=== PATIENT | female | born 1955 | race Caucasian/White ===

== ENCOUNTER 2017-11-03 15:17 | Day surgery (SDC) | payer MEDICARE, MEDICAID ==
[2017-11-03] MEDS ORDERED: NALOXONE HCL INJ/PF 0.4 MG/1 ML SDV ONE (15:29)
[2017-11-03] MEDS ORDERED: EPINEPHRINE INJ 1 MG/10 ML DISP.SYRIN ONE (15:30)
[2017-11-03] MEDS ORDERED: FLUMAZENIL INJ 0.5 MG/5 ML VIAL ONE (15:30)
[2017-11-03] MEDS ORDERED: GLUCAGON,HUMAN RECOMB 1 MG INJ ONE (15:30)
[2017-11-03] MEDS: MIDAZOLAM 2 MG/2 ML INJ ONE ×3 (17:24→17:40)
[2017-11-03] MEDS: FENTANYL CITRATE INJ/PF 100 MCG/2 ML AMPUL ONE ×2 (17:27→17:37)
--- NOTE | 2017-11-03 18:06 | Operative Report ---
Operative Report DATE OF SURGERY: 11/03/17 Operative Report: Pre-op diagnosis: Abnormal weight loss Post-op diagnosis: 1. Unable to perform EGD 2. Ascending colon polyps Surgery: Attempted upper endoscopy and Colonoscopy with polypectomy Medications: Versed 2mg, Fentanyl 75mcg IV push Tissue removed: Colon polyps Procedure: After informed consent obtained from patient's family, conscious sedation was achieved. Attempt was then made to pass the endoscope into the esophagus. I could not get through the upper esophageal sphincter as patient could not swallow and was agitated. A digital rectal examination was performed and this was unremarkable. The colonoscope was inserted into the rectum and advanced to the cecum. The appendiceal orifice and the terminal ileum were both identified. The mucosa was examined into details as the colonoscope was slowly pulled out of the patient. The endoscope was retroflexed in the rectum. Patient tolerated the procedure well. Findings Esophagus: Not intubated Cecum: Normal Ascending colon: 5 mm and 8 mm polyps removed from the proximal ascending colon Transverse colon: Normal. View of the left and right colon was slightly limited Descending colon: Normal Sigmoid colon: Normal Rectum: Normal except for internal hemorrhoids Plan: Await pathology OPERATION: .
[2017-11-03 18:53] VITALS: BP 113/73
== END 2017-11-03 18:50 | disposition home or self-care (01) ==
LOC: END 15:17
PROVIDERS: ATTEND Internal Medicine Gastroenterology
PROC: 0DBK8ZX Excision of Ascending Colon, Via Natural or Artificial Opening Endoscopic, Diagnostic (ICD-10-PCS; principal; 2017-11-03 15:45)
DX: D12.4 Benign neoplasm of descending colon (principal); K64.8 Other hemorrhoids; R63.4 Abnormal weight loss; R63.0 Anorexia; G40.909 Epilepsy, unspecified, not intractable, without status epilepticus; Z68.1 Body mass index [BMI] 19.9 or less, adult; Z79.899 Other long term (current) drug therapy
CPT/HCPCS: 45385; 88305 ×2; J2250; J3010; J0171; J1610; J2310; J3490

== ENCOUNTER → 2019-09-01 | Outpatient (CLI) | payer MEDICARE, MEDICAID ==
--- NOTE | 2019-09-01 15:23 | RADIOLOGY REPORT (SQ) ---
EXAM DESCRIPTION: HUMERUS LEFT COMPLETED DATE/TIME: 09/01/2019 3:03 pm REASON FOR STUDY: FALL W19.XXXA UNSPECIFIED FALL, INITIAL ENCOUNTER COMPARISON: Left shoulder three views same date NUMBER OF VIEWS: Two views. TECHNIQUE: Two radiographic images were acquired of the left humerus to include elbow and shoulder i n at least one projection. LIMITATIONS: None. FINDINGS: MINERALIZATION: Osteoporotic BONES: Acute nondisplaced nonangulated distal left clavicle fracture. AC joint is intact. Left maximilian rudi, scapula, ribs are intact. SOFT TISSUES: No obvious swelling or foreign body. OTHER: No other significant finding. IMPRESSION: Acute nondisplaced nonangulated distal left clavicle fracture TECHNICAL DOCUMENTATION: JOB ID: [id number] [employer]- All Rights Reserved Reading location - IP/workstation name: [email or web address]
--- NOTE | 2019-09-01 15:23 | RADIOLOGY REPORT (SQ) ---
EXAM DESCRIPTION: SHOULDER LEFT 2 OR MORE VIEWS COMPLETED DATE/TIME: 09/01/2019 3:03 pm REASON FOR STUDY: FALL W19.XXXA UNSPECIFIED FALL, INITIAL ENCOUNTER COMPARISON: None. NUMBER OF VIEWS: Three views. TECHNIQUE: Internal rotation, external rotation, and Y view images acquired of the left shoulder. LIMITATIONS: None. FINDINGS: MINERALIZATION: Osteoporotic BONES: Acute nondisplaced nonangulated distal left clavicle fracture marked with a naknek. No wideni ng of the AC joint. JOINTS: No glenohumeral dislocation. VISUALIZED LUNGS AND RIBS: No pneumothorax. No rib fracture. SOFT TISSUES: No radiopaque foreign body. OTHER: No other significant finding. IMPRESSION: Acute nondisplaced nonangulated distal left clavicle fracture TECHNICAL DOCUMENTATION: JOB ID: [id number] [employer]- All Rights Reserved Reading location - IP/workstation name: [email or web address]
== END ==
LOC: OD 14:33
PROVIDERS: ATTEND Family Medicine
DX: S42.035A Nondisplaced fracture of lateral end of left clavicle, initial encounter for closed fracture (principal); W19.XXXA Unspecified fall, initial encounter; M81.0 Age-related osteoporosis without current pathological fracture